=== PATIENT | male | born 1995 | race Caucasian/White ===

== ENCOUNTER 2021-10-05 08:38 | Emergency (ER) | payer SELFPAY ==
[2021-10-05 08:51] VITALS: BP 137/62; PULSE 100; TEMP 98.5; BMI 27.3
[2021-10-05] MEDS ORDERED: predniSONE 20 MG TABLET (UD) PO ONE (09:09)
[2021-10-05] MEDS ORDERED: ALBUTEROL SO4 HFA INHALER IH PRN (09:10)
[2021-10-05] MEDS ORDERED: ALBUTEROL SO4 2.5/IPRATROPIUM 0.5 INH SOL 3 ML VIAL.NEB. NEB SCH (09:30)
[2021-10-05] MEDS ORDERED: predniSONE 20 MG TABLET (UD) ONE (09:33)
[2021-10-05] MEDS ORDERED: ALBUTEROL SO4 HFA INHALER IH ONE (09:34)
== END 2021-10-05 11:50 | disposition home or self-care (01) ==
LOC: JERFT 08:38
DX: J45.901 Unspecified asthma with (acute) exacerbation (principal)
CPT/HCPCS: 87804; 99283-25; C9803; U0003; U0005